=== PATIENT | female | born 1970 | race Two or more races ===

== ENCOUNTER 2016-11-30 07:24 | Emergency (ER) | payer OTHER, MEDICAID ==
[2016-11-30] MEDS ORDERED: IBUPROFEN 600 MG TAB PO ONE (07:43)
[2016-11-30] MEDS ORDERED: CYCLOBENZAPRINE 10 MG TAB PO ONE (07:44)
--- NOTE | 2016-11-30 07:44 | EDPHY ---
H & P Time Seen by Provider: 11/30/16 07:36 HPI/ROS: CHIEF COMPLAINT: Low back pain HISTORY OF PRESENT ILLNESS: 45-year-old female presents with low back pain. She has a history of low back pain 6 months ago and underwent physical therapy with relief in pain. This morning she was getting up from the toilet and had sudden onset right-sided low back pain. The pain has been persistent since and is moderate. The pain increases with any movement of her torso. No associated numbness or weakness. No pain medications taken. REVIEW OF SYSTEMS: Constitutional: No fever, no chills Gastrointestinal: No nausea, no vomiting, no abdominal pain Genitourinary: No hematuria, no dysuria Musculoskeletal: No radicular pain Skin: No rash Neurological: no numbness, no weakness Past Medical/Surgical History: Low back pain Social History: works at [employer] Smoking Status: Never smoked Physical Exam: General Appearance: Alert, standing up, appears in pain Eyes: Pupils equal and round ENT, Mouth: Mucous membranes moist Neck: Normal inspection Gastrointestinal: Abdomen is soft and nontender Back: Right lumbar paraspinous tenderness Neurological: A&O, motor 5/5, sensory intact to light touch, normal gait Skin: Warm and dry, no rash Extremities: normal inspection Constitutional: Initial Vital Signs Temperature (C) 36.6 C 11/30/16 07:27 Heart Rate 80 11/30/16 07:27 Respiratory Rate 14 11/30/16 07:27 Blood Pressure 136/84 H 11/30/16 07:27 O2 Sat (%) 96 11/30/16 07:27 O2 Delivery Mode Room Air Allergies/Adverse Reactions: No Known Allergies Allergy (Verified 11/30/16 07:27) Home Medications: Medication Instructions Recorded Levothyroxine 08/28/16 Hydrocodone/APAP 5/325 [[place] 1 - 2 tab PO Q4H PRN #14 tab 08/29/16 5/325] Vitamins 08/29/16 Cyclobenzaprine [Flexeril 10 MG 10 mg PO TID PRN #15 tab 11/30/16 (*)] Cyclobenzaprine [Flexeril 10 MG 10 mg PO TID PRN #15 tab 11/30/16 (*)] Departure - Departure Disposition: Home, Routine, Self-Care Clinical Impression: Low back strain Qualifiers: Encounter type: initial encounter Qualified Code(s): S39.012A - Strain of muscle, fascia and tendon of lower back, initial encounter Condition: Good Instructions: Low Back Strain (ED), Lower Back Exercises (ED), Core Strengthening Exercises (ED) Additional Instructions: Ibuprofen 600 mg 3 times daily while the pain persists. Referrals: Megan Cha MD [Medical Doctor] - As per Instructions Prescriptions: Cyclobenzaprine [Flexeril 10 MG (*)] 10 mg PO TID PRN #15 tab PRN Reason: Spasms Cyclobenzaprine [Flexeril 10 MG (*)] 10 mg PO TID PRN #15 tab PRN Reason: Spasms
[2016-11-30 08:04] VITALS: BP 120/80; PULSE 78; RESP 18; TEMP 98.4; O2SAT 98
== END 2016-11-30 08:02 | disposition home or self-care (01) ==
DX: S39.012A Strain of muscle, fascia and tendon of lower back, initial encounter (principal); X58.XXXA Exposure to other specified factors, initial encounter; Y93.89 Activity, other specified

== ENCOUNTER 2017-01-29 20:18 | Emergency (ER) | payer OTHER, MEDICAID ==
[2017-01-29] MEDS ORDERED: LORazepam 2 MG/ML INJ ONE (20:25)
--- NOTE | 2017-01-29 20:29 | CPEKG ---
Heart Rate: 101 RR Interval: 594 P-R Interval: 126 QRSD Interval: 98 QT Interval: 376 QTC Interval: 488 P Hiram: 70 QRS Hiram: 50 T Wave Hiram: 39 EKG Severity - BORDERLINE ECG - EKG Impression: SINUS TACHYCARDIA EKG Impression: BORDERLINE PROLONGED QT INTERVAL Electronically Signed By: Srinivasa Calderón 29-Jan-2017 23:20:16
[2017-01-29 20:58] LABS: % IMMATURE GRANULYOCYTES 0.2 % (0.0-1.1); ABSOLUTE IMMATURE GRANULOCYTES 0.01 10^3/uL (0.00-0.10); ADD DIFF? NO; ADD MORPH? NO; ADD SCAN? NO; ATYPICAL LYMPHOCYTE FLAG 20 (0-99); FRAGMENT RBC FLAG 0 (0-99); HEMATOCRIT 37.9 % (38.0-47.0); HEMOGLOBIN 13.5 g/dL (12.6-16.3); LEFT SHIFT FLG 0 (0-99); LIPEMIA HEMOLYSIS FLAG 90 (0-99); MEAN CELL HEMOGLOBIN 29.1 pg (27.9-34.1); MEAN CELL HEMOGLOBIN CONCENTR. 35.6 g/dL (32.4-36.7); MEAN CELL VOLUME 81.7 fL (81.5-99.8); MEAN PLATELET VOLUME 10.7 fL (8.7-11.7); PLATELET CLUMPS FLAG 50 (0-99); PLATELET COUNT 295 10^3/uL (150-400); RED BLOOD CELL COUNT 4.64 10^6/uL (4.18-5.33); RED CELL DISTRIBUTION WIDTH 12.7 % (11.5-15.2)
[2017-01-29 21:08] LABS: ANION GAP 17 mEq/L (8-16); CALCIUM 9.8 mg/dL (8.5-10.4); CARBON DIOXIDE 15 mEq/l (22-31); CHLORIDE 106 mEq/L (97-110); CREATININE 0.6 mg/dL (0.6-1.0); GLOMERULAR FILTRATION RATE > 60; GLUCOSE 175 mg/dL (70-100); POTASSIUM 3.7 mEq/L (3.5-5.2); SODIUM 138 mEq/L (134-144)
[2017-01-29 21:19] LABS: TROPONIN I < 0.012 ng/mL (0-0.034)
[2017-01-29] MEDS ORDERED: LORazepam 1 MG TAB PO ONE (21:19)
[2017-01-29 22:23] VITALS: BP 113/77; PULSE 92; RESP 20; O2SAT 96
--- NOTE | 2017-01-29 22:33 | EDPHY ---
H & P Time Seen by Provider: 01/29/17 20:50 HPI/ROS: Chief complaint. Chest pain HPI. 46-year-old female developed central chest tightness 1 hour prior to arrival. Circumstances were that there 2 daughters had gone to [place] and the parents could not find them. Patient (who is the mother) was extremely upset and developed central chest pressure. She has not been sick. No similar symptoms. But previously. No heart problems. No exacerbating or relieving factors. No unusual leg pain or swelling. Central chest pressure without radiation. No shortness of breath. ROS Constitutional. Anxious and upset Eyes. no problems with vision ENT. no sore throat, no nasal drainage Cardiovascular. Central chest pressure Respiratory. no shortness of breath, no cough Abdominal. no abdominal pain, no nausea/vomiting, no diarrhea . no problems urinating MS. no calf pain/swelling, no neck/back pain, no joint pain Skin. no rash Lymph. no swollen glands Neuro. no headache, no dizziness, no difficulty walking or with speech Past Medical/Surgical History: Hypothyroid No early heart disease in the family Social History: , nonsmoker, no alcohol Smoking Status: Never smoked Physical Exam: General Appearance: Alert upset well-developed female moderate distress vital signs are stable Eyes: Pupils equal and round no pallor or injection. ENT, Mouth: Mucous membranes are moist. Respiratory: There are no retractions, lungs are clear to auscultation. Cardiovascular: Regular rate and rhythm. Gastrointestinal: Abdomen is soft and nontender, no masses, bowel sounds normal. Neurological: Awake and alert, sensory and motor exams grossly normal. Skin: Warm and dry, no rashes. Musculoskeletal: Neck is supple nontender. Extremities symmetrical, full range of motion. Psychiatric: Patient is oriented X 3, there is no agitation. Constitutional: Initial Vital Signs Heart Rate 92 01/29/17 22:22 Respiratory Rate 20 01/29/17 22:22 Blood Pressure 113/77 01/29/17 22:22 O2 Sat (%) 96 01/29/17 22:22 O2 Delivery Mode Room Air Allergies/Adverse Reactions: No Known Allergies Allergy (Verified 11/30/16 07:27) Home Medications: Medication Instructions Recorded Levothyroxine 08/28/16 Hydrocodone/APAP 5/325 [[place] 1 - 2 tab PO Q4H PRN #14 tab 08/29/16 5/325] Vitamins 08/29/16 Cyclobenzaprine [Flexeril 10 MG 10 mg PO TID PRN #15 tab 11/30/16 (*)] Cyclobenzaprine [Flexeril 10 MG 10 mg PO TID PRN #15 tab 11/30/16 (*)] Medical Decision Making - Diagnostics EKG Interpretation: EKG interpreted by me shows sinus tachycardia with normal interval and axis. QRS is normal. There is no significant ST elevation or depression. There is no arrhythmia. Rate is 1 1 Imaging Results: Imaging Impressions Chest X-Ray 01/29/17 20:51 Impression: Normal chest x-ray. Chest x-ray reviewed by me is normal Procedures: IV normal saline, monitor. Patient is given Ativan ED Course/Re-evaluation: On re-evaluation 10:30 p.m. the patient's daughters have been found. She is relieved. Her chest discomfort is gone. The patient and I discussed imaging lab EKG results. We discussed treatment plan including criteria for return importance of follow-up further evaluation. They expressed understanding and agreement Differential Diagnosis: This is likely due to anxiety and stress. I do not find any evidence for pulmonary embolus, pneumonia, acute coronary syndrome. Her symptoms have resolved with finding her daughters. - Data Points Laboratory Results: Laboratory Results 01/29/17 20:40 01/29/17 20:40 01/29/17 01/29/17 01/29/17 20:40 20:40 20:40 WBC 5.34 10^3/uL 10^3/uL (3.80-9.50) RBC 4.64 10^6/uL 10^6/uL (4.18-5.33) Hgb 13.5 g/dL g/dL (12.6-16.3) Hct 37.9 % L % (38.0-47.0) MCV 81.7 fL fL (81.5-99.8) MCH 29.1 pg pg (27.9-34.1) MCHC 35.6 g/dL g/dL (32.4-36.7) RDW 12.7 % % (11.5-15.2) Plt Count 295 10^3/uL 10^3/uL (150-400) MPV 10.7 fL fL (8.7-11.7) Neut % (Auto) 35.2 % L % (39.3-74.2) Lymph % (Auto) 49.4 % H % (15.0-45.0) [place] % (Auto) 12.2 % % (4.5-13.0) Eos % (Auto) 2.6 % % (0.6-7.6) Baso % (Auto) 0.4 % % (0.3-1.7) Nucleat RBC Rel Count 0.0 % % (0.0-0.2) Absolute Neuts (auto) 1.88 10^3/uL 10^3/uL (1.70-6.50) Absolute Lymphs (auto) 2.64 10^3/uL 10^3/uL (1.00-3.00) Absolute Monos (auto) 0.65 10^3/uL 10^3/uL (0.30-0.80) Absolute Eos (auto) 0.14 10^3/uL 10^3/uL (0.03-0.40) Absolute Basos (auto) 0.02 10^3/uL 10^3/uL (0.02-0.10) Absolute Nucleated RBC 0.00 10^3/uL 10^3/uL (0-0.01) Immature Gran % 0.2 % % (0.0-1.1) Immature Gran # 0.01 10^3/uL 10^3/uL (0.00-0.10) D-Dimer < 0.27 ug/mLFEU ug/mLFEU (0.00-0.50) Sodium 138 mEq/L mEq/L (134-144) Potassium 3.7 mEq/L mEq/L (3.5-5.2) Chloride 106 mEq/L mEq/L (97-110) Carbon Dioxide 15 mEq/l L mEq/l (22-31) Anion Gap 17 mEq/L H mEq/L (8-16) BUN 15 mg/dL mg/dL (7-23) Creatinine 0.6 mg/dL mg/dL (0.6-1.0) Estimated GFR > 60 Glucose 175 mg/dL H mg/dL (70-100) Calcium 9.8 mg/dL mg/dL (8.5-10.4) Troponin I < 0.012 ng/mL ng/mL (0-0.034) Medications Given: Discontinued Medications Lorazepam (Ativan) 1 mg PO EDNOW ONE Stop: 01/29/17 21:20 Last Admin: 01/29/17 21:32 Dose: 1 mg Departure - Departure Disposition: Home, Routine, Self-Care Clinical Impression: Chest pain Qualifiers: Chest pain type: unspecified Qualified Code(s): R07.9 - Chest pain, unspecified Condition: Good Instructions: Chest Pain (ED) Additional Instructions: Return for worsening symptoms. Follow up with your regular physician for any continuing chest discomfort Referrals: NONE *PRIMARY CARE P,. [Primary Care Provider] - As per Instructions
== END 2017-01-29 22:45 | disposition home or self-care (01) ==
DX: R07.89 Other chest pain (principal)
CPT/HCPCS: J2060

== ENCOUNTER → 2017-11-29 | Outpatient (CLI) | payer OTHER, MEDICAID | LOC: FIMAGING 15:31 | PROVIDERS: ATTEND Nurse Practitioner Women's Health | DX: D25.9 Leiomyoma of uterus, unspecified (principal) ==

== ENCOUNTER 2018-11-03 10:36 | Emergency (ER) | payer MEDICAID, OTHER ==
[2018-11-03 10:42] VITALS: BP 160/85
[2018-11-03] MEDS ORDERED: LIDOCAINE 4%/MENTHOL 1% PATCH TD ONE (11:11)
--- NOTE | 2018-11-03 11:11 | EDPHY ---
H & P Stated Complaint: Worsening low back pain. Time Seen by Provider: 11/03/18 10:58 HPI/ROS: Chief Complaint: Back pain HPI: 47-year-old woman's been having worsening right lower back pain for the last several days. The patient has a history of back pain in the past after lifting injury at work. This is a couple of years ago. Patient was driving in [place] and felt a spasm of right back pain several days ago. She was seen at [facility] and given prescriptions for baclofen and prednisone. These have been making her sleepy nauseated but have not helped her pain. She has been resting. She is taking occasional ibuprofen. No nausea or vomiting. No numbness or weakness. No urinary urgency or frequency. Pain is not central. Is nonradiating. ROS: 10 systems were reviewed and were negative except those elements noted in the HPI. PMH: Back pain Social History: No smoking, no alcohol, no recreational drug use Family History: non-contributory Physical Exam: Gen: Awake, Alert, No Distress HEENT: Nose: no rhinorrhea Eyes: PERRLA, EOMI Mouth: Moist mucosa Neck: Supple, no JVD Chest: nontender, lungs clear to auscultation Heart: S1, S2 normal, no murmur Abd: Soft, non-tender, no guarding Back: no CVA tenderness, no midline tenderness patient has right paraspinal tenderness with spasm reproducing her presenting complaint Ext: no edema, non-tender Skin: no rash Neuro: CN II-XII intact, Sensation grossly intact, Strength 5/5 in bilateral upper and lower extremities, 2+ deep tendon reflexes. Toes are downgoing. Normal flexion extension. Normal plantar and dorsiflexion. - Personal History Current Tetanus Diphtheria and Acellular Pertussis (TDAP): Yes Tetanus Vaccine Date: < 10 YEARS - Medical/Surgical History Hx Asthma: No Hx Chronic Respiratory Disease: No Hx Diabetes: No Hx Cardiac Disease: No Hx Renal Disease: No Hx Cirrhosis: No Hx Alcoholism: No Hx HIV/AIDS: No Hx Splenectomy or Spleen Trauma: No Other PMH: , THYROID SURGERY, lower back pain - Social History Smoking Status: Never smoked Constitutional: Initial Vital Signs Temperature (C) 36.3 C 11/03/18 10:39 Heart Rate 72 11/03/18 10:39 Respiratory Rate 18 11/03/18 10:39 Blood Pressure 160/85 H 11/03/18 10:39 O2 Sat (%) 97 11/03/18 10:39 O2 Delivery Mode Room Air Allergies/Adverse Reactions: No Known Allergies Allergy (Verified 11/30/16 07:27) Home Medications: Medication Instructions Recorded Levothyroxine 08/28/16 Hydrocodone/APAP 5/325 [[place] 1 - 2 tab PO Q4H PRN #14 tab 08/29/16 5/325] Vitamins 08/29/16 Cyclobenzaprine [Flexeril 10 MG 10 mg PO TID PRN #15 tab 11/30/16 (*)] Cyclobenzaprine [Flexeril 10 MG 10 mg PO TID PRN #15 tab 11/30/16 (*)] Medical Decision Making Procedures: Procedure: Trigger-point injection, Indication: Skin was prepped with chlorhexidine swab. A total of 10 mL of [lidocaine] was infiltrated into right lumbar paraspinal muscles site. The patient experienced relief following the procedure. There are no complications. It was performed by myself. ED Course/Re-evaluation: 47-year-old with lumbar strain. She is completely neurologically intact. No red flags for acute neurologic emergency. She has had relief after trigger- point injection. I have instructed her to discontinue the baclofen in the prednisone as these have never shown any clinic utility and acute low back pain. Will place a Lidoderm patch. She has been given customary back pain instructions, follow up with primary care physician. - Data Points Medications Given: Discontinued Medications Miscellaneous Medication (Icy Hot Lidocaine/Menthol 4%/1% Patch) 1 patch TD EDNOW ONE Stop: 11/03/18 11:12 Last Admin: 11/03/18 11:15 Dose: 1 patch Departure - Departure Disposition: Home, Routine, Self-Care Clinical Impression: Lumbar strain Condition: Good Instructions: Low Back Strain (ED), Lower Back Exercises (ED) Additional Instructions: Discontinue taking the baclofen and the prednisone. Take ibuprofen, 600 mg, 3 times a day. You may also take acetaminophen, 1000 mg every 6 hours. You may replace a Lidoderm patch every 24 hr, these are available over-the- counter. Apply ice for 15 minutes of every hour while awake. Make sure to remain active. Did do not lay in bed or sit in a chair for long periods. Avoid heavy lifting or bending at work until cleared by your physician. Please see the attached back exercise instructions. Follow up with your primary care physician in 2-3 days for further evaluation. Referrals: [facility],. [Clinic] - As per Instructions Stand Alone Forms: Work Excuse
== END 2018-11-03 11:29 | disposition home or self-care (01) ==
PROC: 3E023BZ Introduction of Anesthetic Agent into Muscle, Percutaneous Approach (ICD-10-PCS; principal; 2018-11-03)
DX: S39.012A Strain of muscle, fascia and tendon of lower back, initial encounter (principal); X50.0XXA Overexertion from strenuous movement or load, initial encounter; Y92.89 Other specified places as the place of occurrence of the external cause; Y99.9 Unspecified external cause status; Y93.89 Activity, other specified